=== PATIENT | female | born 1990 | race Hispanic/Latino ===

== ENCOUNTER 2016-10-29 22:52 | Emergency (ER) | payer OTHER ==
[~2016-10-29] VITALS: Ht 154.9 cm; Wt 83.6 kg
[2016-10-29 23:09] VITALS: BP 121/85; PULSE 83; RESP 18; O2SAT 97
[2016-10-30 00:43] LABS: BASOPHILS % (AUTO) 0.2 % (0-3); EOSINOPHILS % (AUTO) 4.6 % (0-5); MONOCYTES % (AUTO) 7.7 % (4-12); Mean Corpuscular Hemoglobin 30.4 pg (27.0-35.0); Mean Corpuscular Volume 89.1 fL (81-100); NEUTROPHILS % (AUTO) 57.6 % (40-74); Platelet Count 323 bil/L (150-400)
[2016-10-30 01:29] VITALS: BP 123/72; PULSE 86; O2SAT 99
[2016-10-30 02:23] LABS: APPEARANCE,URINE CLEAR (CLEAR,HAZY); COLOR,URINE STRAW (YELLOW); OCCULT BLOOD,URINE SMALL (NEGATIVE); UROBILINOGEN,URINE NORMAL (NORMAL)
--- NOTE | 2016-10-30 03:09 | ED.REPORT ---
HPI-General Illness Date of Service Oct 30, 2016 ED Provider: Lior Lew MD Patient is a 25-year-old female with no significant past medical history who presents with occasional weakness that comes and goes. She states that the weakness occurs in her bilateral upper and lower extremities. This started approximately 1-1/2 weeks ago on October 19. She has difficulty when standing for long periods of time such as washing dishes. Today her symptoms improved with food intake. She has not had any recent blood sugars taken. She complains of darkening around her neck and in her armpits. She does feel shaky at times when these episodes come on. She does have some increased thirst and is urinating more often. She has no cold symptoms, infections, lightheadedness or dizziness. She has no headache, vision changes, nausea, vomiting, chest pain, shortness of breath, abdominal pain, melena or hematochezia, swelling or redness in her lower extremities. Nursing Notes Stated Complaint: FEELING WEAK Chief Complaint: General Complaint Nursing Notes Reviewed: Yes Allergies: Coded Allergies: No Known Allergies (Verified , 10/29/16) No Active Prescriptions or Reported Meds General Time Seen by MD: 01:40 Chief Complaint Weakness (in all 4 extremities) Hx Obtained From: Patient Sudden in Onset?: Yes Onset Occurred: More than a week ago... (October 19) Symptom Duration: Waxes and wanes Past Medical History Past Medical History Normal spontaneous vaginal delivery 2 Past Surgical History Appendectomy Family History Noncontributory Smoking History Never Smoker Social History Alcohol Use: Denies alcohol use Drug Use: Denies drug use Other Social History: Local resident Ambulatory Status Independent Review of Systems A comprehensive review of systems was conducted with the patient and found to be negative except as above in the History of Present Illness. Physical Exam General: No acute distress, well-developed, well-nourished, appropriately interactive HEENT: Normocephalic, atraumatic. External ears without defect. Pupils equal, round, and reactive to light and accommodation. Anicteric sclerae, moist conjunctivae, and no lid lag. Oropharynx free of erythema and cobble stoning with moist mucosa. Neck: Supple with full range of motion. No lymphadenopathy or thyromegaly. Cardiovascular: Regular rate and rhythm with no murmurs, rubs, or gallops appreciated Pulmonary: Clear to auscultation bilaterally with no crackles, wheezes, or rhonchi. Normal respiratory effort with no use of accessory muscles. Abdomen: Bowel tones present. Soft, nontender, nondistended. No hepatosplenomegaly or masses appreciated. Extremities: No clubbing, cyanosis, edema, or lymphadenopathy appreciated. Skin: Normal temperature, turgor, and texture; no rash, ulcers, or subcutaneous nodules appreciated. Neurological: Cranial nerves grossly intact. Normal muscle strength, tone, and bulk. No known gait impairment. Psychiatric: Normal mood and affect. Alert and oriented to person, place, and time. Vital Signs Vital Signs Date Time Temp Pulse Resp B/P Pulse Ox O2 Delivery O2 Flow Rate FiO2 10/30/16 04:43 36.7 74 17 95/62 98 Room Air 10/30/16 03:32 111 16 99/63 98 Room Air 10/30/16 03:31 69 16 93/65 98 Room Air 10/30/16 03:31 89 16 102/68 98 Room Air 10/30/16 01:29 36.7 86 123/72 99 Room Air 10/29/16 23:09 36.9 83 18 121/85 97 Room Air Initial VS: Reviewed, Vital signs normal Interpretation & Diagnostics Lab Results Interpretation Result Diagram: 10/30/16 0031 10/30/16 0031 Test 10/30/16 00:31 10/30/16 01:25 White Blood Count 13.2th/mm3 (3.8-10.1) Red Blood Count 4.48mil/mm3 (3.90-5.20) Hemoglobin 13.6g/dL (12.0-15.6) Hematocrit 39.9% (35.0-46.0) Mean Corpuscular Volume 89.1fL (81-100) Mean Corpuscular Hemoglobin 30.4pg (27.0-35.0) Mean Corpuscular Hemoglobin Concent 34.1% (32.0-37.0) Red Cell Distribution Width 11.8% (12.3-15.4) Platelet Count 323bil/L (150-400) Neutrophils (%) (Auto) 57.6% (40-74) Lymphocytes (%) (Auto) 29.7% (14-46) Monocytes (%) (Auto) 7.7% (4-12) Eosinophils (%) (Auto) 4.6% (0-5) Basophils (%) (Auto) 0.2% (0-3) Erythrocyte Sedimentation Rate 21mm/hr (0-32) Sodium Level 137mEq/L (134-144) Potassium Level 3.8mEq/L (3.5-5.2) Chloride Level 100mEq/L (97-108) Carbon Dioxide Level 23mmol/L (18-29) Blood Urea Nitrogen 10mg/dL (6-20) Creatinine 0.79mg/dL (0.57-1.00) Estimat Glomerular Filtration Rate 127mL/min (>59) Glucose Level 95mg/dL (60-99) Calcium Level 9.2mg/dL (8.5-10.1) Total Bilirubin 0.3mg/dL (0.0-1.2) Aspartate Amino Transf (AST/SGOT) 26U/L (0-50) Alanine Aminotransferase (ALT/SGPT) 54U/L (0-32) Alkaline Phosphatase 104U/L (25-150) Total Protein 7.8g/dL (6.4-8.4) Albumin 4.4g/dL (3.4-5.0) Thyroid Stimulating Hormone (TSH) 1.400uIU/mL (0.450-4.500) Free Thyroxine 1.29ng/dL (0.82-1.77) Hold Sanders Top Tube Received (Received) Urine Color Straw (YELLOW) Urine Appearance Clear (CLEAR,HAZY) Urine pH 7.0 (5.0-8.0) Urine Specific Kiron 1.012 (1.003-1.035) Urine Protein Negativemg/dL (NEG,TRACE) Urine Glucose (UA) Negativemg/dL (NEGATIVE) Urine Ketones Negativemg/dL (NEGATIVE) Urine Occult Blood Small (NEGATIVE) Urine Nitrite Negative (NEGATIVE) Urine Bilirubin Negative (NEGATIVE) Urine Urobilinogen Normalmg/dL (NORMAL) Urine Leukocyte Esterase Trace (NEGATIVE) Urine RBC 0-2/hpf (0-2) Urine WBC 0-5/hpf (0-5) Urine Epithelial Cells Occasional/hpf (NONE-MOD) Urine Crystals None seen (NONE SEEN) Urine Bacteria None/hpf (NONE-FEW) Urine Hyaline Casts None/lpf (NONE) Urine Granular Casts None seen (NONE SEEN) Urine Waxy Casts None seen (NONE SEEN) Urine Red Blood Cell Casts None seen (NONE SEEN) Urine White Blood Cell Casts None seen (NONE SEEN) Urine Mucus Present (None Seen) Urine Trichomonas None seen (NONE SEEN) Urine Yeast None (NONE SEEN) Urinalysis Comment None Urine Culture Reflexed Indicated Urine Random Creatinine 73mg/dL (16-392) Urine Random Sodium 83mEq/L Urine Random Potassium 12.8mEq/L Hold Urine Received (Received) Lab Results Interpretation: Elevated ALT of 54 Re-Eval/Medical Decision Med Decision/Clinical Course 25-year-old presents with intermittent weakness and no identifiable issues otherwise. Possibly some relationship to eating. Exam is unremarkable, lab is unremarkable, in no obvious correlation for her symptoms. They are not demonstrable of present in any case. Consideration includes relative hypokalemia after carbohydrate loads. Directed to observe her patterns and any relationship to eating or other activities. Follow up with PCP. Patient is a 25-year-old female with no significant past medical history who presents with occasional weakness that comes and goes. Laboratory evaluation with mild leukocytosis likely to be a stress reaction, mildly elevated ALT is nonspecific, recommend outpatient follow-up liver enzymes. Thyroid function is normal, ESR 21. Urinalysis without signs of a infection however culture is indicated and will be performed. Patient is a high risk of diabetes with a acanthosis nigricans present, strong family history of diabetes affecting both parents and grandparents. Blood glucose was normal, hemoglobin A1c was performed results pending. Urine electrolytes ordered and pending Patient has mild orthostatic hypotension, likely due to hypovolemia. Hydration encouraged. Patient was discharged home in stable condition. Follow-up with primary care provider recommended. Patient's questions were answered prior to discharge. Counseled Regarding: Diagnosis, Lab results, Need for follow-up, When/why to return to ED Discharge & Departure Primary Impression: Orthostatic hypotension Additional Impression: Weakness Disposition: Home Discharge Condition All VS Reviewed: Yes Condition: Stable Patient Instructions: Hypotension (ED) Additional Instructions: Thank you for entrusting us with your care today. Laboratory evaluation shows a mild elevation in your white blood cell count, likely to be a stress reaction. One of your liver enzymes was elevated, this is nonspecific. Your thyroid function is normal. You are not having systemic inflammation. Your urine does not show overt signs of infection however urine culture is performed. Make sure your primary care provider follows up on urine culture and hemoglobin A1c as these more time to complete. Your blood pressure decreased more than expected with sitting up. This is an indicator that you needs to drink more fluid. Water is best for this. Please call [facility] to schedule a emergency department follow-up visit prior to your new patient appointment on November 29. Pay attention to the pattern of your weakness. It may be related to high carbohydrate intake, and happen at some point after you eat. Continue to work to eat a healthy diet. You can track what you eat in my fitness pal an catherine available on your smart phone which helps you stay accountable. I also recommend being prepared with healthy snacks that you have easy access to so that you do not eat less healthy quick alternatives. Return to the emergency department for unilateral weakness, nausea and vomiting and which are not able to hold down fluid for 48 hours. Referrals: [facility], [facility] (PCP) Attending Statement As attending of record for this patient, I conducted an independent history and physical examination, and agree with the documentation per the resident note above, and as amended. copies to: [facility] Saniya Cortés DO Oct 30, 2016 03:09 Lior Lew MD Oct 30, 2016 07:54
[2016-10-30 03:31] VITALS: BP_SYST 102; BP_SYST 93; BP_DIAS 65; BP_DIAS 68; PULSE 69; PULSE 89; RESP 16; O2SAT 98
[2016-10-30 03:32] VITALS: BP 99/63; PULSE 111; RESP 16; O2SAT 98
[2016-10-30 04:43] VITALS: BP 95/62; PULSE 74; RESP 17; O2SAT 98
== END 2016-10-30 04:44 | disposition home or self-care (01) ==
LOC: SED 22:52
DX: I95.1 Orthostatic hypotension (principal); R53.1 Weakness

== ENCOUNTER 2016-11-02 19:25 | Emergency (ER) | payer OTHER ==
[~2016-11-02] VITALS: Ht 154.9 cm; Wt 84.1 kg
[2016-11-02 19:31] VITALS: BP 121/78; PULSE 78; RESP 28; O2SAT 100
--- NOTE | 2016-11-02 20:36 | ED.REPORT ---
HPI-Dyspnea / Wheezing Date of Service Nov 02, 2016 ED Provider: Estelita Cardoso MD Pt is a 25 y/o female presenting to the ED c/o intermittent episodes of SOB onset 08:00 this morning. She was driving and began to feel generally weak, short of breath, chest pain, rapid palpitations, and then experienced shaking of her feet. This lasted about 3 hours. Another episode happened when she was sitting at home watching TV. This caused her anxiety and lightheadedness. She has had minor episodes of this infrequently in the past but has not seen a provider for it. There is no family history of heart disease or PE, is not on estrogen, no recent periods of immobilization, recent leg pain or swelling. She has an appointment with Reece scheduled on November 29 2016. She has no medical history and takes no medications. Nursing Notes Stated Complaint: SHORT OF BREATH AND WEAKNESS Chief Complaint: Respiratory Complaints Nursing Notes Reviewed: Yes Allergies: Coded Allergies: No Known Allergies (Verified , 11/02/16) No Active Prescriptions or Reported Meds General Time Seen by MD: 20:34 Chief Complaint Shortness of breath Hx Obtained From: Patient Arrived By: Walk-in Sudden in Onset?: Yes Onset Occurred: 9 - 12 hours ago Symptom Duration: Intermittent Location: : Substernal Quality: Pressure Severity: Current: No pain currently Severity: Maximum: Mild Similar Sx Previous: Yes Past Medical History Past Medical History Normal spontaneous vaginal delivery 2 Past Surgical History Appendectomy Family History Noncontributory Smoking History Never Smoker Social History Alcohol Use: Denies alcohol use Drug Use: Denies drug use Other Social History: Local resident Ambulatory Status Independent Review of Systems Respiratory: Reports: Shortness of breath, Denies: Non-productive cough Cardiovascular: Reports: Chest pain, Palpitations Musculoskeletal: Denies: Extremity pain, Extremity swelling Complete sys rev & neg: except as marked. Neurologic: Reports: Lightheaded Psychiatric: Reports: Anxiety Physical Exam Initial Vital Signs Vital Signs (First) Date Time Temp Pulse Resp B/P Pulse Ox O2 Delivery O2 Flow Rate FiO2 11/02/16 19:31 36.8 78 28 121/78 100 Room Air Initial VS: Reviewed, Vital signs abnormal (RR normal during exam) Head / Eyes: Atraumatic, Normocephalic, PERRL ENT: Mucous membranes moist, Conjunctiva normal, No scleral icterus Extremities: Vascular intact, Neuro intact, No swelling Skin: Warm, Dry, No cyanosis Neurologic: Alert, Oriented, Nonfocal Psychiatric: Mood/affect normal, Behavior normal, Normal thought content General/Constitutional: Awake, Alert, No acute distress, Well appearing, Cooperative, Not toxic appearing Neck: Supple, No meningismus, Full range of motion Respiratory / Chest: Breath sounds NL, Breath sounds = bilat, No respiratory distress, No rales, No rhonchi, No wheezing, No retractions, No stridor Cardiovascular: Heart rate NL, Regular rhythm, Heart sounds NL, No murmurs Lower Extremity / Pelvis / MS: No deformity, Neurologic intact, Vascular intact Calves are soft and nontender Interpretation & Diagnostics Lab Results Interpretation Result Diagram: 11/02/16211411/02/162114 Test 11/02/16 21:15 White Blood Count 15.0th/mm3 (3.8-10.1) Red Blood Count 4.63mil/mm3 (3.90-5.20) Hemoglobin 14.0g/dL (12.0-15.6) Hematocrit 40.9% (35.0-46.0) Mean Corpuscular Volume 88.3fL (81-100) Mean Corpuscular Hemoglobin 30.2pg (27.0-35.0) Mean Corpuscular Hemoglobin Concent 34.2% (32.0-37.0) Red Cell Distribution Width 11.6% (12.3-15.4) Platelet Count 313bil/L (150-400) Neutrophils (%) (Auto) 71.0% (40-74) Lymphocytes (%) (Auto) 20.6% (14-46) Monocytes (%) (Auto) 5.7% (4-12) Eosinophils (%) (Auto) 2.3% (0-5) Basophils (%) (Auto) 0.1% (0-3) D-Dimer < 0.50mg/L FEU (<0.50) Sodium Level 138mEq/L (134-144) Potassium Level 3.8mEq/L (3.5-5.2) Chloride Level 99mEq/L (97-108) Carbon Dioxide Level 22mmol/L (18-29) Blood Urea Nitrogen 8mg/dL (6-20) Creatinine 0.56mg/dL (0.57-1.00) Estimat Glomerular Filtration Rate 189mL/min (>59) Glucose Level 116mg/dL (60-99) Calcium Level 9.8mg/dL (8.5-10.1) Magnesium Level 2.2mg/dL (1.6-2.6) Troponin T 0.010ug/L (0.0-0.011) Thyroid Stimulating Hormone (TSH) 0.939uIU/mL (0.450-4.500) ECG Interpretation ECG Interpretation: Sinus rhythm rate 82 Time: 21:27 Interpreted by: ED physician Normal ECG Interpretation: No acute ischemic changes X-Ray Chest Interpretation Chest Xray Interpretation: IMPRESSION: No radiographic evidence of acute cardiopulmonary pathology. Dictated by: Champ Cool M.D. on 11/02/2016 at 21:03 Approved by: Champ Cool M.D. on 11/02/2016 at 21:04 View: Portable, AP & lat Interpretation / Wet Read by: Interpret - Radiologist Re-Eval/Medical Decision Med Decision/Clinical Course The patient has had multiple similar episodes but they were worse today. A partial list of differential diagnoses considered were hyperthyroid, dysrhythmia , electrolyte abnormality, pulmonary embolus, anxiety disorder, congestive heart failure, and acute coronary syndrome. No acute fall process was identified. I explained to the patient that she needs further evaluation, so she is to keep her upcoming appointment. Re-Evaluation/Progress : Time of Eval: 22:13 Re-Evaluation/Progress Note: Pt rechecked. Discussed lab results. Informed pt of plan for discharge. Pt understands and agrees with plan for discharge. F/U instructions and RTER warnings given. All questions addressed. Counseled Regarding: Diagnosis, Lab results, Need for follow-up, When/why to return to ED Discharge & Departure Impression: Primary Impression: Chest pain Chest pain type: unspecified Qualified Code: R07.9 - Chest pain, unspecified Additional Impressions: Palpitations Dyspnea Dyspnea type: unspecified Qualified Code: R06.00 - Dyspnea, unspecified Disposition: Home Discharge Condition All VS Reviewed: Yes Condition: Stable Patient Instructions: Chest Pain (ED), Heart Palpitations (ED), Shortness of Breath (ED) Additional Instructions: The cause of your symptoms is unclear at this point but does not seem imminently dangerous. Labs, EKG, and chest x-ray were reassuring. You were checked for a thyroid issue, pulmonary embolus, electrolyte abnormalities, and heart conduction abnormalities. Follow-up with your primary care doctor as scheduled. You should discuss with your doctor wearing a Holter monitor so that if you experience another episode of this your heart rhythm will be captured. Return to the emergency department if you experience worsening or persistent chest pain, shortness of breath, palpitations, or for other concerning symptoms. Referrals: [facility] (PCP) Scribe Attestation Portions of this note were transcribed by Tevin Martínez. I, Dr. Cardoso personally performed the history, physical exam and medical decision-making; I reviewed and confirmed the accuracy of the information in the transcribed note. copies to: [facility] Estelita Cardoso MD Nov 02, 2016 20:36 TEVIN MARTÍNEZ Nov 02, 2016 20:41
--- NOTE | 2016-11-02 21:06 | DRSVH ---
PROCEDURE: X-RAY CHEST, TWO VIEWS ([id number]) INDICATIONS: SHORTNESS OF BREATH TECHNIQUE: 2 views of the chest were acquired. COMPARISON: [facility], , CHEST 2VW, 03/27/2009, 1:57. FINDINGS: Surgical changes and devices: None. Lungs and pleura: No pleural effusions or pneumothorax. Lungs are clear. Mediastinum: Mediastinal contours are normal. Heart size is normal. Bones and chest wall: No suspicious bony abnormalities. Soft tissues appear unremarkable. IMPRESSION: No radiographic evidence of acute cardiopulmonary pathology. Dictated by: Champ Cool M.D. on 11/02/2016 at 21:03 Approved by: Champ Cool M.D. on 11/02/2016 at 21:04
[2016-11-02 21:20] LABS: BASOPHILS % (AUTO) 0.1 % (0-3); EOSINOPHILS % (AUTO) 2.3 % (0-5); MONOCYTES % (AUTO) 5.7 % (4-12); Mean Corpuscular Hemoglobin 30.2 pg (27.0-35.0); Mean Corpuscular Volume 88.3 fL (81-100); Platelet Count 313 bil/L (150-400)
[2016-11-02 21:49] LABS: TROPONIN T 0.01 ug/L (0.0-0.011)
[2016-11-02 22:00] LABS: Magnesium 2.2 mg/dL (1.6-2.6)
[2016-11-02 22:42] VITALS: BP 111/63; PULSE 88; RESP 22; O2SAT 97
== END 2016-11-02 22:47 | disposition home or self-care (01) ==
LOC: SED 19:25
DX: R07.9 Chest pain, unspecified (principal); R00.2 Palpitations; R06.00 Dyspnea, unspecified